=== PATIENT | male | born 2000 | race Caucasian/White ===

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

== ENCOUNTER 2022-12-02 14:44 | Emergency (ER) | payer OTHER, SELFPAY | END 2022-12-02 16:00 | disposition home or self-care (01) | LOC: MADERS 14:44 | DX: S61.216A Laceration without foreign body of right little finger without damage to nail, initial encounter (principal); W25.XXXA Contact with sharp glass, initial encounter | CPT/HCPCS: 12001 ==

== ENCOUNTER 2023-09-28 10:47 | Emergency (ER) | payer BC, SELFPAY ==
[2023-09-28] MEDS ORDERED: Sodium Chloride 0.9% 1,000 ML ONE (11:54)
[2023-09-28] MEDS ORDERED: Ondansetron PF 4 MG/2 ML Vial ONE (11:54)
[2023-09-28] MEDS ORDERED: Pantoprazole 40 MG VIAL ONE (11:54)
[2023-09-28 12:19] LABS: Hemoglobin 14.7 g/dL (14.0-18.0); Mean Corpuscular HGB CONC 30.6 g/dL (32.0-36.0); Mean Corpuscular Hemoglobin 28.4 pg (27.0-31.0); Mean Corpuscular Volume 92.6 fl (78.0-98.0); Mean Platelet Volume 6.7 fL (7.4-10.4); Platelet Count 221 10x3/uL (130-400); RBC Distribution Width 12.2 % (11.5-14.5); Red Blood Cell (RBC) Count 5.18 mill/uL (4.70-6.10); White Blood Cell (WBC) Count 3.8 10x3/uL (4.8-10.8)
[2023-09-28 12:20] LABS: MDiff Complete? YES; Manual Diff?? YES
[2023-09-28 12:21] LABS: Band 2 % (5-11); Eosinophils 2 % (0-10); Lymphocytes 22 % (21-51); Monocytes 10 % (0-10); Neutrophil 64 % (42-75); Platelet Adequacy Comment Appears Adequate; RBC Morph Comment Within Normal Limits
[2023-09-28 12:28] LABS: ALT (SGPT) 22 U/L (8-55); AST (SGOT) 25 U/L (5-34); Albumin 4.5 g/dL (3.5-5.0); Alkaline Phosphatase 94 U/L (40-110); Anion Gap 12 mmol/L (10-20); BUN (Urea Nitrogen) 16 mg/dL (8.9-20.6); Calc. Creatinine Clearance 0 mL/min (70-130); Calcium 9.4 mg/dL (7.8-10.44); Carbon Dioxide 25 mmol/L (22-29); Chloride 102 mmol/L (98-107); Estimated GFR 117; Glucose 96 mg/dL (70-105); Potassium 3.9 mmol/L (3.5-5.1); Protein, Total 7.5 g/dL (6.0-8.3); Sodium 135 mmol/L (136-145)
[2023-09-28 12:41] LABS: Bilirubin, Total 2.1 mg/dL (0.2-1.2)
== END 2023-09-28 12:57 | disposition home or self-care (01) ==
LOC: MADERS 10:47
DX: T67.5XXA Heat exhaustion, unspecified, initial encounter (principal); E86.0 Dehydration; R11.2 Nausea with vomiting, unspecified; F17.290 Nicotine dependence, other tobacco product, uncomplicated; F17.220 Nicotine dependence, chewing tobacco, uncomplicated
CPT/HCPCS: 80053; 85025; 96361; 96374; 96375; C9113; J2405; J7050

== ENCOUNTER 2025-03-13 15:01 | Emergency (ER) | payer SELFPAY | END 2025-03-13 15:32 | disposition home or self-care (01) | LOC: MADERS 15:01 | DX: J06.9 Acute upper respiratory infection, unspecified (principal); F17.210 Nicotine dependence, cigarettes, uncomplicated; F17.290 Nicotine dependence, other tobacco product, uncomplicated | CPT/HCPCS: 99283 ==